=== PATIENT | male | born 1975 | race Caucasian/White ===

== ENCOUNTER → 2016-12-14 | Outpatient (CLI) | payer BC ==
--- NOTE | 2016-12-14 10:52 | DX ---
Right Elbow, 4 Views, at 9:47 a.m. Clinical History: 41-year-old male who fell onto his elbow in August, with continued pain. ICD 10 Diagnostic Code: M25.521. Comparison Study: None. Findings: Bone mineralization is preserved. There is no fracture, dislocation, marginal erosion, or l ytic blastic lesion. There is no elbow joint effusion, or loose osteochondral body. Impression: Normal.
== END ==
LOC: BMCIMAGING 09:47
PROVIDERS: ATTEND Emergency Medicine
DX: M25.521 Pain in right elbow (principal)

== ENCOUNTER 2018-02-17 14:06 | Emergency (ER) | payer OTHER ==
--- NOTE | 2018-02-17 14:39 | EDPHY ---
H & P Time Seen by Provider: 02/17/18 14:18 HPI/ROS: CHIEF COMPLAINT: Right shoulder injury HISTORY OF PRESENT ILLNESS: [place], right shoulder pain which is worse with movement or rotation. No abdominal pain. REVIEW OF SYSTEMS: No weakness or numbness in extremities. Denies other injuries, specifically denies headache or neck pain. PAST MEDICAL HISTORY: Right knee surgery Social history: Has a relationship with Dr. Osvaldo Ramirez at [facility] from previous elbow problem. General Appearance: Alert and conversant, cooperative. Tenderness mid and lateral right clavicle without tenting or laceration. I can rotate and gently abduct shoulder passively. Normal right humerus elbow forearm wrist hand and fingers. Normal radial pulse and motor and sensory in the right hand. No crepitus. No right upper quadrant abdominal tenderness. Emergency Department course/MDM: Lateral 3rd clavicle fracture displaced. Will be referred to his orthopedist for consultation early this week. Does not have skin tenting or open fracture or peripheral neurovascular damage. Warned he may require ORIF. Smoking Status: Never smoked Constitutional: Initial Vital Signs Temperature (C) 36.7 C 02/17/18 14:08 Heart Rate 55 L 02/17/18 14:08 Respiratory Rate 16 02/17/18 14:08 Blood Pressure 127/65 H 02/17/18 14:08 O2 Sat (%) 96 02/17/18 14:08 O2 Delivery Mode Room Air Allergies/Adverse Reactions: No Known Allergies Allergy (Unverified 02/17/18 14:08) Home Medications: Medication Instructions Recorded Fish Oil 1,000 mg Softgel 02/17/18 Multivitamin (*) 02/17/18 oxyCODONE/APAP 5/325 [Percocet] 1 - 2 tab PO Q4-6PRN PRN #11 tab 02/17/18 MDM/Departure - MDM Imaging Results: Right shoulder x-ray and clavicle shows displaced lateral 3rd right clavicle fracture. Imaging: I viewed and interpreted images myself Medications Given: Discontinued Medications Oxycodone/Acetaminophen (Percocet 5/325) 1 tab PO EDNOW ONE Stop: 02/17/18 14:42 Last Admin: 02/17/18 14:51 Dose: 1 tab - Depart Disposition: Home, Routine, Self-Care Clinical Impression: Fracture, clavicle Qualifiers: Encounter type: sequela Clavicle location: lateral end Fracture type: closed Fracture alignment: displaced Laterality: right Qualified Code(s): S42.031S - Displaced fracture of lateral end of right clavicle, sequela Condition: Good Instructions: Clavicle Fracture (ED) Additional Instructions: sling for comfort, limited use right shoulder until approved by Orthopedics. Prescriptions: oxyCODONE/APAP 5/325 [Percocet] 1 - 2 tab PO Q4-6PRN PRN #11 tab PRN Reason: Pain Referrals: Mack Rodriguez MD [Primary Care Provider] - As per Instructions Osvaldo Ramirez MD [Medical Doctor] - 2-3 days, call for appt.
[2018-02-17] MEDS ORDERED: OXYCODONE/APAP 5/325 TAB PO ONE (14:41)
[2018-02-17 14:54] VITALS: BP 128/77
== END 2018-02-17 14:54 | disposition home or self-care (01) ==
DX: S42.031A Displaced fracture of lateral end of right clavicle, initial encounter for closed fracture (principal); V00.321A Fall from snow-skis, initial encounter; Y99.8 Other external cause status; Y93.23 Activity, snow (alpine) (downhill) skiing, snowboarding, sledding, tobogganing and snow tubing
CPT/HCPCS: A4565